=== PATIENT | male | born 1995 | race Caucasian/White ===

== ENCOUNTER 2022-08-07 15:13 | Emergency (ER) | payer BC ==
[2022-08-07] MEDS ORDERED: SODIUM CHLORIDE 1,000 ML IV STA (15:16)
[2022-08-07 15:43] VITALS: BP 132/71; PULSE 69; RESP 17; TEMP 98.2; BMI 23.1
[2022-08-07 16:19] LABS: BASO % 0.1 % (0-2.0); EOS % 0.3 % (0-4.5); HEMATOCRIT 43.2 % (35.4-49); LYMPH % 9.6 % (8-40); MCH 28.9 pg (25.7-33.7); MCHC 34.7 g/dl (32.0-35.9); MEAN CELL VOLUME 83.1 fl (80-96); PLATELET COUNT 295 10^3/uL (134-434); RDW 12.5 % (11.9-15.9); WHITE BLOOD COUNT 14.5 K/mm3 (4.0-10.0)
[2022-08-07 16:27] LABS: POTASSIUM 3.8 mmol/L (3.5-5.1)
[2022-08-07 16:29] LABS: ALBUMIN 4.8 g/dl (3.4-5.0); CALCIUM 9.8 mg/dL (8.5-10.1)
[2022-08-07 16:30] LABS: BLOOD UREA NITROGEN 16.5 mg/dL (7-18)
[2022-08-07 16:34] LABS: BILIRUBIN,TOTAL 0.9 mg/dL (0.2-1); TOT PROT 7.8 g/dl (6.4-8.2)
[2022-08-07 16:37] LABS: EPI CELLS 3 /uL (0-25.1); HYALINE CASTS 0 /uL (0-3.1); PH,URINE 6.5 (5.0-8.0); URINE APPEARANCE CLEAR; URINE BACTERIA 3 /uL (0-1359); URINE BILIRUBIN NEGATIVE (NEGATIVE); URINE COLOR YELLOW; URINE GLUCOSE (UA) NEGATIVE (NEGATIVE); URINE KETONE NEGATIVE (NEGATIVE); URINE LEUK ESTERASE NEGATIVE (NEGATIVE); URINE NITRITE NEGATIVE (NEGATIVE); URINE PROTEIN NEGATIVE (NEGATIVE); URINE RBC 20 /uL (0-23.9); URINE UROBILINOGEN 0.2 mg/dL (0.2-1.0); URINE WBC 4 /uL (0-25.8)
== END 2022-08-07 17:34 | disposition home or self-care (01) ==
LOC: JER 15:13
PROC: 3E0337Z Introduction of Electrolytic and Water Balance Substance into Peripheral Vein, Percutaneous Approach (ICD-10-PCS; principal; 2022-08-07)
DX: N23 Unspecified renal colic (principal); D72.829 Elevated white blood cell count, unspecified; R11.0 Nausea; R68.83 Chills (without fever)
CPT/HCPCS: 36415; 74176-TC; 80053; 81003; 85025; 87086; 99284-25